=== PATIENT | female | born 1960 | race Two or more races ===

== ENCOUNTER 2020-12-09 12:06 | Emergency (ER) | payer OTHER ==
[~2020-12-09] VITALS: Ht 167.6 cm; Wt 68.0 kg
[2020-12-09] MEDS ORDERED: fentaNYL CITRATE 100 MCG/2 ML VL IV ONE (12:45)
[2020-12-09 13:11] VITALS: BP 115/56
== END 2020-12-09 14:26 | disposition home or self-care (01) ==
LOC: ER 12:06 → EDBD 12:06 → EDUNIT# 12:06 → ER 14:26
DX: S83.095A Other dislocation of left patella, initial encounter (principal); K21.9 Gastro-esophageal reflux disease without esophagitis; Z88.2 Allergy status to sulfonamides; Z90.89 Acquired absence of other organs; Z90.710 Acquired absence of both cervix and uterus; W18.39XA Other fall on same level, initial encounter; Y93.89 Activity, other specified; Y92.89 Other specified places as the place of occurrence of the external cause; Y99.8 Other external cause status
CPT/HCPCS: 27560; 73560; 73562; 96374; 99284; J3010